=== PATIENT | male | born 1960 | race Caucasian/White ===

== ENCOUNTER 2022-02-09 02:05 | Day surgery (SDC) | payer OTHER, SELFPAY ==
[2022-01-23 14:36] VITALS: BMI 24.5
[2022-02-09 08:01] VITALS: BP 146/84; PULSE 57; RESP 20; TEMP 36.4; O2SAT 99; BMI 24.0
--- NOTE | 2022-02-09 08:12 | P.PNAN_ITS ---
Anes - Initial Pre Proc Eval Procedure: Operation Date: 02/09/22 09:00 Proposed Procedures p Screening Colonoscopy - Geoff Wolf MD Date/Time: 02/09/22 08:12 Surgeon: Geoff Wolf MD Pre Op Diagnosis: hx of colon polyps Patient Data Age: 61 Gender: M Height: 1.83 m Weight: 80.6 kg Last Vital Signs Temp 97.5 F L 02/09/22 08:01 Pulse 57 L 02/09/22 08:01 Resp 20 02/09/22 08:01 BP 146/84 H 02/09/22 08:01 Pulse Ox 99 02/09/22 08:01 Allergies Allergy/AdvReac Type Severity Reaction Status Date / Time No Known Allergies Allergy Verified 02/09/22 08:00 Home Medications Medication Instructions Recorded Confirmed Type atorvastatin 20 mg PO DAILY 01/23/22 01/23/22 History losartan 75 mg PO DAILY 01/23/22 01/23/22 History Patient hx anesthesia problems: none Family hx anesthesia problems: none Results Review: All pre-operative results and documents have been reviewed as part of the pre-operative evaluation. [facility] Social History Social History Smoking status: Never smoker Alcohol intake: current Drinks per week: 4 Substance use type: does not use Living arrangements: other Spiritual care concerns: No Anes - Eval Final PreProcedure Day of Procedure 02/09/22 08:12 Patient weight: normal Heart: regular rate and rhythm Lungs: clear to auscultation Airway: Mallampati scale class II Neurological: alert and oriented Last oral intake: >/= 8 hours ASA classification: II Emergent: no Anesthetic plan: proceed Anesthesia type and monitoring: general GIVS and standard monitoring Results Review: All pre-operative results and documents have been reviewed as part of the pre-operative evaluation. Informed Consent: The patient's anesthetic plan and its attendant risks and benefits were discussed with the patient/family/POA. Questions were solicited and answers provided to the satisfaction of the patient/family/POA.
[2022-02-09] MEDS: LACTATED RINGERS 1,000 ML 150 ML IV CONT (08:15)
--- NOTE | 2022-02-09 08:33 | PM.HPGS ---
History of Present Illness History of Present Illness Consent: Risks, benefits, and alternatives have been discussed and questions answered. Patient agrees to proceed with procedure. Chief complaint: hx of colon polyps Narrative: Jakob Stahl is a 61 year old male with colon polyp in 2017 Review of Systems Constitutional: Constitutional: Denies headache(s) and Denies weakness Eyes: Eyes: Denies blurry vision ENT: Reports Normal hearing present, Denies headache(s) and Denies neck pain Cardiovascular: Cardiovascular: Denies chest pain and Denies dyspnea Respiratory: Respiratory: Denies dyspnea Gastrointestinal: Gastrointestinal: Reports no additional gastrointestinal complaints Genitourinary: Genitourinary: Denies dysuria Musculoskeletal: Musculoskeletal: Denies neck pain Integumentary/Breasts: Skin/Breast: Denies dry skin Neurologic: Reports Normal hearing present, Denies headache(s) and Denies weakness Psychiatric: Psychiatric: Denies anxiety Endocrine: Endocrine: Denies change in body appearance Hematologic/Lymphatic: Hematologic/Lymphatic: Denies easy bleeding Allergic/Immunologic: Allergic/Immunologic: Denies urticaria PMF Past Medical History Medical History (Updated 02/09/22 @ 08:33 by Geoff Wolf MD) Colon polyp Social History Social History Smoking status: Never smoker Alcohol intake: current Drinks per week: 4 Substance use type: does not use Living arrangements: other Spiritual care concerns: No Meds Home Medications and Allergies Home Medications Medication Instructions Recorded Confirmed Type atorvastatin 20 mg PO DAILY 01/23/22 01/23/22 History losartan 75 mg PO DAILY 01/23/22 01/23/22 History Allergies Allergy/AdvReac Type Severity Reaction Status Date / Time No Known Allergies Allergy Verified 02/09/22 08:00 Vital Signs Vital Signs - 24 hr 02/09/22 08:01 Temperature 97.5 F L Pulse Rate 57 L Respiratory Rate 20 Blood Pressure 146/84 H Pulse Oximetry 99 Exam Const: General: comfortable and no acute distress HENMT: General nose exam: Normal nares present Eyes: General: appearance normal, both eyes and all related structures Neck: Neck: no JVD Resp: Auscultation: clear to auscultation bilaterally Cardio: Rate: regular rate Rhythm: regular rhythm GI: Inspection: non-distended GI Palp: Yes Soft to palpation Skin: General skin exam: normal color Neuro: General: gait normal Speech: normal speech Extrem: General: normal to inspection Psych: Mental Status: mental status grossly normal Assessment and Plan Assessment and plan (1) Colon polyp: Code(s): K63.5 - Polyp of colon Status: Acute Assessment and Plan: colonoscopy
[2022-02-09 08:51] VITALS: BP 122/82; PULSE 54; RESP 17; O2SAT 98
[2022-02-09 09:01] VITALS: BP 136/85; PULSE 53; RESP 17; O2SAT 99
[2022-02-09 09:11] VITALS: BP 135/91; PULSE 51; RESP 21; O2SAT 99
== END 2022-02-09 09:21 | disposition home or self-care (01) ==
PROVIDERS: PCP Emergency Medicine; Visit Provider Internal Medicine Gastroenterology
PROC: 0DJD8ZZ Inspection of Lower Intestinal Tract, Via Natural or Artificial Opening Endoscopic (ICD-10-PCS; CPT 45378; principal; 2022-02-09 09:00)
DX: Z12.11 Encounter for screening for malignant neoplasm of colon (principal); K63.5 Polyp of colon; K64.8 Other hemorrhoids
CPT/HCPCS: 45385; 88305; J2704; J7120

== ENCOUNTER 2023-12-30 07:30 | Outpatient (RCR) | payer OTHER, SELFPAY ==
--- NOTE | 2023-11-24 08:30 | PTOPEVAL1 ---
Assessment and note entered by Jim Chilel Evaluation Information Assessment Status Evaluation Diagnosis low back pain Onset 11/04/23 Subjective Information Pt. reports that his low back pain began on 11/04/23 after lifting his grandchild. He reports after lifting the his grandchild he got a sensation of pain going down the left leg. Pt. reports no change in his symptoms since the initial incident. He reports that walking worsens his pain. He states that he can currently only walk for about 5 minutes before pain gets too intense and has to sit down. He recalls no prior history of back pain. He reports that pain wakes him at night, but is only getting about 3 hours of sleep per night. He states that prior to injury he was exercising 3x/week, walked his dog daily, bicycle rides, and did all normal housework. He reports since the injury he has been unable to complete any of his regular activities. Pt. has underwent xray that revealed DDD and also had an MRI that revealed a herniated disc at L3-4. Pt. reports that he saw the specialist who suggested surgery. He reports that he is unable to stand up straight , but can sit as long as he wants. He reports that his goal for therapy is to decrease his back and left leg pain. Reported Pain Level Pain Score 5: Self Report Assessment PT Clinical Summary Pt. is a 63 year old male who enters the clinic with a diagnosis of low back pain. Pt. currently presents with difficulty with standing IADL's, impaired gait, impaired trunk mobility, impaired postural awareness, pain, left l.e. weakness and functional decline. Continued skilled PT is indicated in order to improve these areas to allow the pt. to return to normal IADL performance without limitation. Plan of Care Interventions Electrical Stimulation,Gait Training,Hot Pack/Cold Pack,Manual Therapy,Mechanical Traction,Neuro Re- education,Patient/Caregiver Educati,Therapeutic Activities,Therapeutic Exercise PT Services Indicated Yes Treatment Frequency and 2x/week x 10 visits Duration These treatments will address the objective and functional deficits as defined above. The patient will be advanced safely and appropriately in order for the patient to progress towards his/her prior level of function. Additional exercises will be introduced and as well as a comprehensive home exercise program upon discharge, if
--- NOTE | 2023-11-24 08:32 | OPREHPOC ---
Outpatient Therapy Plan of Care This is a Multidisciplinary Plan of Care that may contain components documented by all disciplines (PT, OT, and ST.) PT Problem 1 PT Problem #1 Knowledge Deficit PT Goal 1 Goal Independent with a HEP addressing trunk mobility and core strength. Target Visit 2 PT Problem 2 PT Problem #2 Pain PT Goal 1 Goal Pt. will reduce pain reports to 5/10 at worst with long periods of standing. Target Visit 10 PT Problem 3 PT Problem #3 Impaired Strength PT Goal 1 Goal Pt. will present with 4+/5 gross left l.e. strength in order to improve gait mechanics to improve left stance time. Target Visit 10 PT Problem 4 PT Problem #4 Impaired Functional Mobil PT Goal 1 Goal Pt. will present with less than 35% limitation with the LEFS indicating overall improvement in function Pt. will demonstrate ability to lift object weighing 10-20# from floor to waist with no pain increase in order to return to exercise activities . Target Visit 10 PT Problem 5 PT Problem #5 Impaired Flexibility PT Goal 1 Goal Pt. will present at 10 degrees from full knee extension on both right and left with the 90/90 test. Target Visit 10
--- NOTE | 2023-12-30 08:15 | PTOPDC ---
Assessment and note entered by Jim Chilel Evaluation Information Assessment Status Discharge Diagnosis low back pain Onset 11/04/23 Subjective Information Pt. reports he currently has no pain. He states that the last time he noticed pain was a couple days ago, and describes the pain as mild. He reports that he has returned to all normal activities without limitation. He is ready for discharge at this time. Reported Pain Level Pain Score 0: Self Report Assessment PT Clinical Summary Pt. has met all goals established at the initial evaluation. He demonstrates safe body mechanics with lifting and is independent with his HEP. He will be discharged from our care at this time. Plan of Care PT Services Indicated No
== END 2023-12-30 11:06 | disposition home or self-care (01) ==
LOC: ANHPT 07:30
PROVIDERS: PCP Emergency Medicine
DX: M54.50 Low back pain, unspecified (principal)
CPT/HCPCS: 97014; 97110; 97161; 97530; G0283

== ENCOUNTER 2025-05-11 10:00 | Outpatient (CLI) | payer OTHER, SELFPAY ==
--- NOTE | ~2025-05-11 | MR_ITS ---
MRI of the lumbar spine Clinical History: Radiculopathy Technique: Axial T2-weighted images, and sagittal T1-weighted, T2-weighted, and T2 fat-sat images wer e acquired. Findings: No acute fracture seen. There is 3 mm retrolisthesis of L2 over L3. There is 3 mm retrolist hesis of L4 over L5. There are multilevel reactive marrow signal changes due to underlying degenerati ve disease. No suspicious bone marrow signal abnormality seen. At L1-L2, there is minimal disc bulge. No spinal canal stenosis or neural foraminal narrowing. At L2-L3, there is severe degenerative disc narrowing. There is minimal disc bulge and mild facet hyp ertrophy. No spinal canal stenosis. There is moderate bilateral neural foraminal narrowing, left wors e than right. At L3-L4, there is severe degenerative distended. There is diffuse disc bulge with advanced facet art hropathy, resulting in severe spinal canal stenosis/thecal sac compression and severe left neural for aminal narrowing. Right neural foramen preserved. At L4-L5, there is diffuse disc bulge with moderate facet hypertrophy. No spinal canal stenosis. Ther e is moderate to severe bilateral neural foraminal narrowing. At L5-S1, there is disc bulge with tiny annular fissure and mild facet arthropathy. No central canal stenosis or neural foraminal narrowing. Paravertebral soft tissues are unremarkable. Impression: Severe degenerative spondylosis at L3-L4, as detailed above. Moderate degenerative changes at L2-L3 and L4-L5, as above. Reviewed, dictated and finalized at [facility]. Impression: Severe degenerative spondylosis at L3-L4, as detailed above. Moderate degenerative changes at L2-L3 and L4-L5, as above.
== END 2025-05-11 10:01 | disposition home or self-care (01) ==
LOC: MICIMG 10:02
PROVIDERS: PCP Family Medicine; Visit Provider Physical Medicine & Rehabilitation Pain Medicine
DX: M47.26 Other spondylosis with radiculopathy, lumbar region (principal); M51.369 Other intervertebral disc degeneration, lumbar region without mention of lumbar back pain or lower extremity pain
CPT/HCPCS: 72148